=== PATIENT | male | born 1990 | race Caucasian/White ===

== ENCOUNTER 2017-05-16 16:36 | Emergency (ER) | payer MEDICAID ==
[~2017-05-16] VITALS: Ht 170.2 cm; Wt 56.8 kg
[2017-05-16 17:50] LABS: APPEARANCE,URINE CLEAR (CLEAR); BILIRUBIN,URINE NEGATIVE (NEGATIVE); GLUCOSE, URINE (UA) NEGATIVE (NEGATIVE); KETONES,URINE 15 mg/dL (NEGATIVE); LEUKOCYTE ESTERASE ,URINE NEGATIVE (NEGATIVE); NITRATE,URINE NEGATIVE (NEGATIVE); OCCULT BLOOD,URINE NEGATIVE (NEGATIVE); PROTEIN,URINE NEGATIVE (NEGATIVE); UROBILINOGEN,URINE 0.2 mg/dL (<=1.0)
[2017-05-16 18:04] LABS: RBC,URINE None Seen /HPF (0-2); WBC,URINE 0-2 /HPF (0-5)
[2017-05-16 18:05] LABS: BACTERIA,URINE None Seen /HPF (None Seen); SQUAMOUS EPITHELIAL CELL,UR None Seen /LPF (None Seen)
[2017-05-16 18:20] VITALS: BP 118/79
== END 2017-05-16 18:54 | disposition home or self-care (01) ==
LOC: EMS 16:40
DX: R35.0 Frequency of micturition (principal); R39.11 Hesitancy of micturition; R30.0 Dysuria; Z87.442 Personal history of urinary calculi
CPT/HCPCS: 99283